=== PATIENT | female | born 1955 | race Caucasian/White ===

== ENCOUNTER 2018-01-08 15:26 | Emergency (ER) | payer OTHER ==
[2018-01-08 15:26] VITALS: BMI 45.2
--- NOTE | 2018-01-08 16:26 | ED PDOC ---
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 Denies loss of consciousness or head trauma. Tetanus shot not up to date PMD: Dr. Nick Hankins MD Past Medical History Reviewed: Historical Data, Nursing Documentation, Vital Signs Vital Signs: Last Vital Signs Temp 97.6 F 01/08/18 15:27 Pulse 95 H 01/08/18 15:27 Resp 16 01/08/18 15:27 BP 167/81 H 01/08/18 15:27 Pulse Ox 100 01/08/18 15:27 - Medical History PMH: HTN, Hypercholesterolemia, Peripheral Edema Denies: Chronic Kidney Disease - Surgical History Surgical History: No Surg Hx - Family History Family History: States: Unknown Family Hx - Social History Current smoker - smoking cessation education provided: No Alcohol: None Drugs: Denies - Home Medications Home Medications: Ambulatory Orders Medication Instructions Recorded Aspirin [Ecotrin] 81 mg PO DAILY 08/18/17 Atorvastatin [Lipitor] 40 mg PO HS 08/18/17 Canagliflozin/Metformin HCl 1 tab PO BID 08/18/17 [Invokamet 150-1,000 mg Tablet] Clopidogrel [Plavix] 75 mg PO HS 08/18/17 Exenatide Microspheres [Bydureon 2 mg SC QWK 08/18/17 Pen] Furosemide [Lasix] 20 mg PO DAILY 08/18/17 Gabapentin 300 mg PO TID 08/18/17 Insulin Detemir [Levemir] 10 unit SC HS 08/18/17 Insulin Detemir [Levemir] 28 unit SC QAM 08/18/17 [place]-3 Fatty Acids/Fish Oil [Fish 1 tab PO DAILY 08/18/17 Oil 1,000 mg Capsule] Valsartan/Hydrochlorothiazide 1 tab PO BID 08/18/17 [Diovan Hct 160-12.5 mg Tab] Cephalexin [Keflex] 500 mg PO BID #14 capsule 01/08/18 - Allergies Allergies/Adverse Reactions: Allergies Allergy/AdvReac Type Severity Reaction Status Date / Time No Known Allergies Allergy Verified 08/18/17 09:18 Review of Systems ROS Statement: Except As Marked, All Systems Reviewed And Found Negative (As per HPI, otherwise negative) Constitutional: Negative for: Other (Loss of consciousness or head trauma) Musculoskeletal: Positive for: Arm Pain (Abrasions to the right elbow) Physical Exam - Reviewed Nursing Documentation Reviewed: Yes Vital Signs Reviewed: Yes - Physical Exam Appears: Positive for: Well, Non-toxic, No Acute Distress Head Exam: Positive for: ATRAUMATIC, NORMAL INSPECTION, NORMOCEPHALIC Skin: Positive for: Normal Color, Warm, Dry Eye Exam: Positive for: Normal appearance, EOMI Respiratory: Negative for: Accessory Muscle Use, Respiratory Distress Extremity: Positive for: Normal ROM (Full range of motion of the arms and shoulder bilaterally), Capillary Refill (Pulses are normal. Sensation intact. ) , Other (Abrasion with small hematoma about 3x2 cm to the right posterior proximal forearm ). Negative for: Pedal Edema Neurologic/Psych: Positive for: Alert, Oriented (x3), Gait (Steady) - ECG O2 Sat by Pulse Oximetry: 100 (RA) Pulse Ox Interpretation: Normal Medical Decision Making Medical Decision Making: Time: 1623 Initial impression: Right arm pain and abrasions s/p fall Initial plan: --Irrigate abrasion with normal saline. Time: 163 --Patient is medically clear for discharge and given Rx for Keflex 500 mg. Clinical impression: Elbow injury. Abrasion. Tetanus toxoid vaccinations administered at current visit. Scribe Attestation: Documented by Liv Norton, acting as a scribe for Mariaa Baldwin PA-C. Provider Scribe Attestation: All medical record entries made by the Scribe were at my direction and personally dictated by me. I have reviewed the chart and agree that the record accurately reflects my personal performance of the history, physical exam, medical decision making, and the department course for this patient. I have also personally directed, reviewed, and agree with the discharge instructions and disposition. Disposition - Clinical Impression Clinical Impression: Elbow injury, Abrasion, Tetanus toxoid vaccination administered at current visit - Patient ED Disposition Is Patient to be Admitted: No Counseled Patient/Family Regarding: Need For Followup, Rx Given - Disposition Disposition: Routine/Home Disposition Time: 16:30 Condition: STABLE Prescriptions: Cephalexin [Keflex] 500 mg PO BID #14 capsule Instructions: Wound Care (DC) Forms: [facility] ([place]ian)
[2018-01-08] MEDS ORDERED: Tdap Vaccine 0.5 ml Vial (10-64 yrs) IM ONE ×2 (16:27→16:34)
[2018-01-08 16:41] VITALS: BP 150/78; PULSE 81; RESP 18; TEMP 98; O2SAT 96
== END 2018-01-08 16:42 | disposition home or self-care (01) ==
LOC: H.ER 15:26
DX: S50.311A Abrasion of right elbow, initial encounter (principal); W19.XXXA Unspecified fall, initial encounter; Y99.0 Civilian activity done for income or pay